=== PATIENT | male | born 1985 | race Caucasian/White ===

== ENCOUNTER 2025-01-18 13:57 | Emergency (ER) | payer MEDICAID ==
[~2025-01-18] VITALS: Ht 177.8 cm; Wt 99.8 kg
[2025-01-18] MEDS ORDERED: Trimethoprim/Sulfamethoxazole DS Tab PO ONE (16:30)
[2025-01-18] MEDS ORDERED: CEPH500 PO (16:35)
[2025-01-18] MEDS ORDERED: BACTRIM DS TAB1 EAC1 PO (16:35)
== END 2025-01-18 16:38 | disposition home or self-care (01) ==
LOC: ER 13:57
DX: S91.112A Laceration without foreign body of left great toe without damage to nail, initial encounter (principal); W45.8XXA Other foreign body or object entering through skin, initial encounter; Z88.5 Allergy status to narcotic agent; Z88.8 Allergy status to other drugs, medicaments and biological substances; Z79.899 Other long term (current) drug therapy
CPT/HCPCS: 73630; 73660; 99283-25; A9270